=== PATIENT | female | born 1935 | race Caucasian/White ===

== ENCOUNTER 2018-03-09 16:11 | Emergency (ER) | payer OTHER ==
--- NOTE | 2018-03-09 17:17 | RAD REPORT ---
EXAM DESCRIPTION: CT - CTHCSPWOC - 03/09/2018 5:09 pm CLINICAL HISTORY: Trauma, head and neck injury. fall COMPARISON: Facial Bones W/ Mpr dated 03/09/2018 TECHNIQUE: Axial 5 mm thick images of the head were obtained. Axial 2 mm thick images of the cervical spine were obtained with sagittal and coronal reconstruction images generated and reviewed. All CT scans are performed using dose optimization technique as appropriate and may include automated exposure control or mA/KV adjustment according to patient size. FINDINGS: CT HEAD WITHOUT CONTRAST: No acute hemorrhage, hydrocephalus or extra-axial collection is identified.No areas of brain edema or midline shift. The paranasal sinuses and mastoids are clear.The calvarium is intact. Soft tissue swelling is seen le ft periorbital region anterior to the left zygoma. CT CERVICAL SPINE WITHOUT CONTRAST: No fracture or subluxation.Moderate degenerative change at C3-4.No prevertebral soft tissues swelling is identified. IMPRESSION: No acute intracranial or cervical spine findings.
--- NOTE | 2018-03-09 17:18 | RAD REPORT ---
EXAM DESCRIPTION: CT - CTFB CLINICAL HISTORY: fall Facial trauma pain. COMPARISON: No comparisons TECHNIQUE: Axial 2 mm thick images of the face were obtained with sagittal and coronal reconstructio n images. All CT scans are performed using dose optimization technique as appropriate and may include automated exposure control or mA/KV adjustment according to patient size. FINDINGS: No acute facial bone fracture is seen.The mandible is intact. The globes and orbital contents are grossly unremarkable.The paranasal sinuses and mastoids are clear . Soft tissue swelling is seen anterior to the left zygoma. IMPRESSION: Negative for facial bone fracture.
--- NOTE | 2018-03-09 18:05 | ER ---
Nurse's Notes [facility] Name: Anabelle Christine Age: 82 yrs Sex: Female : 1935 Arrival Date: 03/09/2018 Time: 16:12 Bed 7 Private MD: Arian Landon Diagnosis: Other slipping, tripping and stumbling and falls;Laceration without foreign body of eyelid and periocular area-Left Presentation: 03/09 16:18 Presenting complaint: Patient states: Was walking daughters dog, the dog took off sg running, making me off balanced and i fell hitting my left side of my head above my eye brow, and left shoulder pain that started today. Care prior to arrival: None. Mechanism of Injury: Fall from standing position. Trauma event details: Injury occurred in the [facility], Injury occurred: on a street or highway. Injury occurred: March 09, 2018. 16:18 Acuity: MADELINE 3 sg 16:18 Method Of Arrival: Ambulatory sg 16:20 Presenting complaint: denies blood thinner medications, no aspirin per pt. sg 16:20 Transition of care: patient was not received from another setting of care. Onset of bp symptoms is unknown. Risk Assessment: Do you want to hurt yourself or someone else? Patient reports no desire to harm self or others. Initial Sepsis Screen: Does the patient meet any 2 criteria? No. Patient's initial sepsis screen is negative. Does the patient have a suspected source of infection? No. Patient's initial sepsis screen is negative. Triage Assessment: 16:30 Musculoskeletal: Swelling present in outer aspect of left eyebrow. Injury Description: sg Laceration sustained to outer aspect of left eyebrow is contaminated, superficial, 0.5 to 2.5 cm long, not bleeding, a small amount of bleeding noted at this time. Historical: - Allergies: 16:25 No Known Allergies; sg - Home Meds: 16:25 cholesterol medication [Active]; sg - PMHx: 16:25 High Cholesterol; Breast Cancer; sg - PSHx: 16:25 Mastectomy, Left; Mastectomy, Right; sg - Immunization history: Last tetanus immunization: unknown. - Social history:: Smoking status: Patient/guardian denies using tobacco. - Ebola Screening: : Patient negative for fever greater than or equal to 101.5 degrees Fahrenheit, and additional compatible Ebola Virus Disease symptoms Patient denies exposure to infectious person Patient denies travel to an Ebola-affected area in the 21 days before illness onset No symptoms or risks identified at this time. Screenin:26 Abuse screen: Denies threats or abuse. Denies injuries from another. Tuberculosis sg screening: No symptoms or risk factors identified. Never had TB. 18:26 Nutritional screening: No deficits noted. Fall Risk None identified. bp Primary Survey: 16:18 NO uncontrolled hemorrhage observed. A: The patient is alert. Airway: patent, No sg supplemental oxygen in use on arrival. Oral cavity: clear, Trachea midline. Breathing/Chest: Respiratory pattern: regular, Respiratory effort: spontaneous, unlabored, Breath sounds: clear, Chest inspection: symmetrical rise and fall of the chest. Circulation: Heart tones present. Skin color: pink, Skin temperature: warm, dry. Disability Alert. Exposure/Environment: There is no evidence of uncontrolled external bleeding. Obvious injury(ies) are noted at this time: abrasion to right palm, left pinky finger, laceration sustained to left eyebrow A warming method has been applied: A warm blanket has been provided to the patient. Assessment: 16:30 General: Appears in no apparent distress. uncomfortable, slender, Behavior is calm, bp cooperative, appropriate for age. Pain: Complains of pain in outer aspect of left eyebrow and left eye. Neuro: Level of Consciousness is awake, alert, obeys commands, Oriented to person, place, time, situation, Appropriate for age. Cardiovascular: No deficits noted. Respiratory: Airway is patent Respiratory effort is even, unlabored, Respiratory pattern is regular, symmetrical. GI: No signs and/or symptoms were reported involving the gastrointestinal system. : No signs and/or symptoms were reported regarding the genitourinary system. EENT: Eyes LEFT BROW LAC. Derm: Wound noted outer aspect of left eyebrow. Musculoskeletal: Circulation, motion, and sensation intact. Range of motion: intact in all extremities. 17:16 Reassessment: PT RETURNED FROM CT. ca1 18:24 Reassessment: PT D/C HOME AMBULATORY WITH FAMILY, DX WITH LACERATION. bp Vital Signs: 16:26 BP 156 / 94; Pulse 78; Resp 17; Temp 98.0; Pulse Ox 100% on R/A; Pain 4/10; sg 17:58 BP 160 / 84; Pulse 71; Resp 16; Pulse Ox 100% ; bp Lalo Coma Score: 16:26 Eye Response: spontaneous(4). Verbal Response: oriented(5). Motor Response: obeys sg commands(6). Total: 15. Trauma Score (Adult): 16:26 Eye Response: spontaneous(1); Verbal Response: oriented(1); Motor Response: obeys sg commands(2); Systolic BP: > 89 mm Hg(4); Respiratory Rate: 10 to 29 per min(4); Lalo Score: 15; Trauma Score: 12 ED Course: 16:12 Patient arrived in ED. dl4 16:12 Arian Landon MD is Private Physician. dl4 16:14 Keith Singh PA is PHCP. cp 16:14 Delbert Godfrey MD is Attending Physician. cp 16:17 David Lynn, ARMEN is Primary Nurse. bp 16:19 Triage completed. sg 16:26 Patient has correct armband on for positive identification. Bed in low position. Call sg light in reach. Side rails up X2. 17:10 CT completed. Patient tolerated procedure well. Patient moved back from CT. vm2 17:58 Assist provider with laceration repair on outer aspect of left eyebrow that was 2.5 cm. bp or less using Dermabond. Performed by Keith BUTLER. Wound care: to laceration located on outer aspect of left eyebrow was cleaned with Hibiclens, Patient tolerated well. 18:24 Patient did not have IV access during this emergency room visit. bp 18:26 Arm band placed on. bp Administered Medications: No medications were administered Intake: 16:26 PO: 0ml; Total: 0ml. sg Outcome: 18:05 Discharge ordered by . cp 18:24 Discharged to home ambulatory, with family. bp 18:24 Condition: stable 18:24 Discharge instructions given to patient, family, Instructed on discharge instructions, follow up and referral plans. wound care, Demonstrated understanding of instructions, follow-up care, wound care. 18:26 Patient left the ED. bp Signatures: Sumeet rBambila RN RN Keith Garza PA PA cp McGuire, Victoria 2 David Lynn RN RN bp Luna, David dl4 Abi Gonsalez RN RN ca1
--- NOTE | 2018-03-09 18:06 | EDPHYS ---
Physician Documentation [facility] Name: Anabelle Christine Age: 82 yrs Sex: Female : 1935 Arrival Date: 03/09/2018 Time: 16:12 Bed 7 Private MD: Arian Landon ED Physician Delbert Godfrey HPI: 03/09 16:23 This 82 yrs old Female presents to ER via Ambulatory with complaints of Fall cp Injury. 16:23 Details of fall: The patient fell from an upright position, while walking, and struck a cp concrete surface. Onset: The symptoms/episode began/occurred today. Associated injuries: The patient sustained injury to the head, laceration, of the left supraorbital area, swelling, tenderness. 16:23 Severity of symptoms: in the emergency department the symptoms are unchanged. no LOC cp reported by patient. Historical: - Allergies: 16:25 No Known Allergies; sg - Home Meds: 16:25 cholesterol medication [Active]; sg - PMHx: 16:25 High Cholesterol; Breast Cancer; sg - PSHx: 16:25 Mastectomy, Left; Mastectomy, Right; sg - Immunization history: Last tetanus immunization: unknown. - Social history:: Smoking status: Patient/guardian denies using tobacco. - Ebola Screening: : Patient negative for fever greater than or equal to 101.5 degrees Fahrenheit, and additional compatible Ebola Virus Disease symptoms Patient denies exposure to infectious person Patient denies travel to an Ebola-affected area in the 21 days before illness onset No symptoms or risks identified at this time. ROS: 16:25 Constitutional: Negative for body aches, chills, fever, poor PO intake. cp 16:25 Neck: Negative for pain with movement, pain at rest, stiffness. cp 16:25 Cardiovascular: Negative for chest pain. 16:25 Respiratory: Negative for cough, shortness of breath, wheezing. 16:25 Abdomen/GI: Negative for abdominal pain, nausea, vomiting, and diarrhea, constipation. 16:25 Skin: Positive for laceration(s), of the left supraorbital area. 16:25 Neuro: Negative for altered mental status, dizziness, headache, loss of consciousness, weakness. 16:25 All other systems are negative. Exam: 16:33 Constitutional: The patient appears in no acute distress, alert, awake, cp non-diaphoretic, non-toxic, well developed, well nourished. 16:33 Head/face: Noted is ecchymosis, that is mild, of the left supraorbital area, a cp laceration(s), that is superficial, that is linear, of the left supraorbital area, swelling, that is mild, of the left supraorbital area. 16:33 Eyes: Pupils: equal, round, and reactive to light and accomodation, Extraocular movements: intact throughout, Conjunctiva: normal, no exudate, no injection, Sclera: no appreciated abnormality, Lids and lashes: appear normal, bilaterally. 16:33 ENT: External ear(s): are unremarkable, Ear canal(s): are normal, clear, TM's: bulging, is not appreciated, bilaterally, dullness, bilaterally, erythema, is not appreciated, bilaterally, Nose: is normal, Mouth: Lips: moist, Oral mucosa: pink and intact, moist, Posterior pharynx: is normal, airway is patent, no erythema, no exudate. 16:33 Neck: C-spine: vertebral tenderness, is not appreciated, crepitus, is not appreciated, ROM/movement: is normal, is supple, without pain, no range of motions limitations, no meningismus, no nuchal rigidity. 16:33 Chest/axilla: Inspection: normal, Palpation: is normal, no crepitus, no tenderness. 16:33 Cardiovascular: Rate: normal, Rhythm: regular, Edema: is not appreciated, JVD: is not appreciated. 16:33 Respiratory: the patient does not display signs of respiratory distress, Respirations: normal, no use of accessory muscles, no retractions, no splinting, no tachypnea, labored breathing, is not present, Breath sounds: are clear throughout, no decreased breath sounds, no stridor, no wheezing. 16:33 Abdomen/GI: Inspection: abdomen appears normal, Palpation: abdomen is soft and non-tender, in all quadrants. 16:33 Back: pain, is absent, ROM is normal, vertebral tenderness, is not appreciated. 16:33 Musculoskeletal/extremity: Exam is negative for decreased range of motion, deformity, injury. 16:33 Neuro: Orientation: to person, place \T\ time. Mentation: is normal, Cerebellar function: is grossly normal, Motor: moves all fours, strength is normal, Sensation: is normal, Gait: is steady. Vital Signs: 16:26 BP 156 / 94; Pulse 78; Resp 17; Temp 98.0; Pulse Ox 100% on R/A; Pain 4/10; sg 17:58 BP 160 / 84; Pulse 71; Resp 16; Pulse Ox 100% ; bp Lalo Coma Score: 16:26 Eye Response: spontaneous(4). Verbal Response: oriented(5). Motor Response: obeys sg commands(6). Total: 15. Trauma Score (Adult): 16:26 Eye Response: spontaneous(1); Verbal Response: oriented(1); Motor Response: obeys sg commands(2); Systolic BP: > 89 mm Hg(4); Respiratory Rate: 10 to 29 per min(4); [place] Score: 15; Trauma Score: 12 Laceration: 18:00 Wound Repair of 1.5cm ( 0.6in ) subcutaneous laceration to left supraorbital area. cp Linear shaped.. Distal neuro/vascular/tendon intact. Anesthesia: none with none. Wound prep: Simple cleansing by nurse. Skin closed with thin layer Adhesive skin closure using Dermabond. Patient tolerated well. MDM: 16:15 Patient medically screened. cp 17:00 Differential diagnosis: closed head injury, contusion, fracture, laceration, multiple cp trauma. 18:04 Data reviewed: vital signs, nurses notes, radiologic studies, CT scan, and as a result, cp I will discharge patient. 18:04 Counseling: I had a detailed discussion with the patient and/or guardian regarding: the cp historical points, exam findings, and any diagnostic results supporting the discharge/admit diagnosis, radiology results, the need for outpatient follow up, a family practitioner, to return to the emergency department if symptoms worsen or persist or if there are any questions or concerns that arise at home. Response to treatment: the patient's symptoms have markedly improved after treatment, and as a result, I will discharge patient. Special discussion: Based on the patient's history, exam and DX evaluation, there is no indication for emergent intervention or inpatient TX. It is understood by the patient/guardian that if the SXs persist or worsen they need to return immediately for re-evaluation. 03/09 16:19 Order name: CT Head C Spine cp 01/15 16:19 Order name: CT Facial Bones W/O Con cp 03/09 17:23 Order name: CT; Complete Time: 17:41 EDMS 03/09 17:42 Interpretation: Report reviewed. cp 03/09 17:23 Order name: CT; Complete Time: 17:41 EDMS 03/09 17:42 Interpretation: Report reviewed. cp Administered Medications: No medications were administered Disposition: 18:30 Chart complete. cp Disposition: 03/09/18 18:05 Discharged to Home. Impression: Other slipping, tripping and stumbling and falls, Laceration without foreign body of eyelid and periocular area - Left. - Condition is Stable. - Discharge Instructions: Head Injury, Adult, Facial Laceration. - Medication Reconciliation Form, Thank You Letter, Antibiotic Education, Prescription Opioid Use form. - Follow up: Private Physician; When: 2 - 3 days; Reason: Recheck today's complaints. - Problem is new. - Symptoms have improved. Addendum: 03/14/2018 03:24 Co-signature as Attending Physician, Delbert Godfrey MD Available for consultation at p s1 all times. Signatures: Dispatcher [employer] EDTX Sumeet Brambila RN RN sg Keith Singh PA PA cp David Lynn RN RN bp Delbert Godfrey MD MD ps1 Corrections: (The following items were deleted from the chart) 03/09 18:26 18:05 03/09/2018 18:05 Discharged to Home. Impression: Other slipping, tripping and bp stumbling and falls; Laceration without foreign body of eyelid and periocular area - Left. Condition is Stable. Forms are Medication Reconciliation Form, Thank You Letter, Antibiotic Education, Prescription Opioid Use. Follow up: Private Physician; When: 2 - 3 days; Reason: Recheck today's complaints. Problem is new. Symptoms have improved. cp
[2018-03-09] MEDS ORDERED: DERMABOND SKIN ADHESIVE TOP ONE (18:07)
== END 2018-03-09 18:26 | disposition home or self-care (01) ==
LOC: ER 16:11
PROC: 0JQ10ZZ Repair Face Subcutaneous Tissue and Fascia, Open Approach (ICD-10-PCS; principal; 2018-03-09)
DX: S01.112A Laceration without foreign body of left eyelid and periocular area, initial encounter (principal); W01.198A Fall on same level from slipping, tripping and stumbling with subsequent striking against other object, initial encounter; E78.00 Pure hypercholesterolemia, unspecified; Z79.899 Other long term (current) drug therapy; Z85.3 Personal history of malignant neoplasm of breast
CPT/HCPCS: 70450; 70486; 72125; 76377; 99284